=== PATIENT | female | born 1950 | race Caucasian/White ===

== ENCOUNTER → 2018-01-18 | Outpatient (CLI) | payer MEDICARE ==
[2013-11-24 09:47] VITALS: BP 132/85
[~2018-01-18] MED LIST: CELEBREX100 MG; CELEBREX200 MG PO; CRESTOR; CRESTOR 10MG10 MG PO; GABAPENTIN300 MG PO; LEVOTHYROXIN0.075 MG PO; LEVOTHYROXINE; METFORMIN500 MG PO; NORCO 325 MG-101 TAB; ONDANSETRON HYDR4 M1 PO; SERTRALINE100 MG PO; VIBRAMYCIN100 MG PO
== END ==
LOC: RAD 15:22
DX: M79.661 Pain in right lower leg (principal)

== ENCOUNTER → 2018-04-11 | Outpatient (CLI) | payer MEDICARE ==
[2013-11-24 09:47] VITALS: BP 132/85
== END ==
LOC: RAD 12:00
DX: M19.071 Primary osteoarthritis, right ankle and foot (principal); M85.471 Solitary bone cyst, right ankle and foot; M89.8X7 Other specified disorders of bone, ankle and foot

== ENCOUNTER 2018-10-13 13:30 | Outpatient (RCR) | payer MEDICARE ==
[2013-11-24 09:47] VITALS: BP 132/85
== END 2018-10-13 14:00 ==
LOC: PT 13:30
DX: S42.91XA Fracture of right shoulder girdle, part unspecified, initial encounter for closed fracture (principal)

== ENCOUNTER → 2019-03-21 | Outpatient (CLI) | payer MEDICARE ==
[2013-11-24 09:47] VITALS: BP 132/85
== END ==
LOC: RAD 10:52 → MAMMO 11:30 → RAD 11:30
DX: Z13.820 Encounter for screening for osteoporosis (principal); M85.851 Other specified disorders of bone density and structure, right thigh

== ENCOUNTER → 2019-03-21 | Outpatient (CLI) | payer MEDICARE ==
[2013-11-24 09:47] VITALS: BP 132/85
== END ==
LOC: MAMMO 10:45
DX: Z12.31 Encounter for screening mammogram for malignant neoplasm of breast (principal)

== ENCOUNTER 2019-04-13 11:00 | Outpatient (RCR) | payer MEDICARE ==
[2013-11-24 09:47] VITALS: BP 132/85
== END 2019-05-09 | disposition still patient (30) ==
LOC: PT
DX: M12.811 Other specific arthropathies, not elsewhere classified, right shoulder (principal)

== ENCOUNTER 2019-09-21 23:40 | Emergency (ER) | payer MEDICARE ==
[~2019-09-21 23:40] MED LIST changes: -LEVOTHYROXINE; +SYNTHROID0.075 MG PO
[2019-09-22 00:38] LABS: ALBUMIN 3.7 g/dL (3.4-4.8); POTASSIUM 3.5 mmol/L (3.5-5.1); SODIUM 143 mmol/L (136-145)
[2019-09-22 00:40] LABS: CALCIUM 9.3 mg/dL (8.3-10.5); EOS # 0.1 (0.04-0.40); EOS % 1.4 % (1.0-5.0); HEMATOCRIT 43.6 % (37.0-47.0); HEMOGLOBIN 13.9 g/dL (12.5-16.0); LYMPH# 1.8 (1.50-4.00); MEAN CELL VOLUME 95 fl (78-100); MEAN CORPUSCULAR HEMOGLOBIN 30 pg (27-31); MEAN CORPUSCULAR HGB CONC 32 g/dL (33-37); MEAN PLATELET VOLUME 9.3 fl (7.4-10.4); MONO # 0.3 (0.20-0.80); NEU # 6.2 (1.40-6.50); PLATELET COUNT 289 K/mm3 (130-400); RED BLOOD COUNT 4.59 M/mm3 (4.10-5.30); RED CELL DISTRIBUTION WIDTH 13.2 % (11.5-14.5); WHITE BLOOD COUNT 8.4 K/mm3 (4.8-10.8)
[2019-09-22 00:41] LABS: GLUCOSE 122 mg/dL (65-105); TOTAL PROTEIN 6.3 g/dL (6.2-8.1)
[2019-09-22 00:42] LABS: CARBON DIOXIDE 27 mmol/L (23-31)
[2019-09-22 00:43] LABS: TOTAL BILIRUBIN 0.3 mg/dL (0.2-1.2)
[2019-09-22 00:46] LABS: AST-SGOT 21 U/L (5-34)
[2019-09-22 00:47] LABS: ALT/SGPT 10 U/L (0-55)
[2019-09-22 00:48] LABS: ALCOHOL IN-HOUSE < 10 mg/dL (<10)
[2019-09-22 00:55] LABS: TROPONIN-I < 0.03 ng/mL (<0.030)
[2019-09-22 01:53] LABS: D-DIMER 10.67 mg/L FEU (0.15-0.50)
[2019-09-22 02:41] LABS: URINE APPEARANCE CLEAR; URINE COLOR YELLOW
[2019-09-22 02:42] LABS: URINE BILIRUBIN NEGATIVE (NEGATIVE); URINE BLOOD NEGATIVE (NEGATIVE); URINE GLUCOSE NEGATIVE (NEGATIVE); URINE KETONE NEGATIVE (NEGATIVE); URINE LEUKOCYTE ESTERASE 1+ (NEGATIVE); URINE NITRATE NEGATIVE (NEGATIVE); URINE PROTEIN(semi-quant) TRACE mg/dL (NEGATIVE); URINE UROBILINOGEN NORMAL (NORMAL)
[2019-09-22] MEDS ORDERED: ACETAMINOPHEN-H1 TA1 PO (03:12)
[2019-09-22] MEDS ORDERED: PLAQUENIL 200M200 MG PO (03:12)
[2019-09-22] MEDS ORDERED: LISINOPRIL10 MG PO (03:13)
[2019-09-22] MEDS ORDERED: GLUCOPHAGE PO (03:13)
[2019-09-22] MEDS ORDERED: ROSUVASTATIN CA10 MG PO (03:13)
[2019-09-22] MEDS ORDERED: DULOXETINE60 MG PO (03:14)
[2019-09-22] MEDS ORDERED: HCTZ 25MG25 MG PO (03:14)
[2019-09-22] MEDS ORDERED: NEURONTIN300 MG/CAP PO (03:15)
[2019-09-22 03:50] VITALS: BP 152/78
== END 2019-09-22 03:50 | disposition short-term general hospital (02) ==
LOC: ED 23:40
PROVIDERS: Nurse Practitioner Family
DX: I95.1 Orthostatic hypotension (principal); E86.0 Dehydration; E86.1 Hypovolemia; I12.9 Hypertensive chronic kidney disease with stage 1 through stage 4 chronic kidney disease, or unspecified chronic kidney disease; E11.22 Type 2 diabetes mellitus with diabetic chronic kidney disease; N18.9 Chronic kidney disease, unspecified; E78.5 Hyperlipidemia, unspecified; Z90.89 Acquired absence of other organs; Z90.710 Acquired absence of both cervix and uterus; Z79.84 Long term (current) use of oral hypoglycemic drugs
CPT/HCPCS: J7120; Q9967

== ENCOUNTER → 2020-06-20 | Outpatient (CLI) | payer MEDICARE ==
[~2020-06-20] MED LIST changes: +ACETAMINOPHEN-H1 TA1 PO; +DULOXETINE60 MG PO; +GLUCOPHAGE PO; +HCTZ 25MG25 MG PO; +LISINOPRIL10 MG PO; +NEURONTIN300 MG/CAP PO; +PLAQUENIL 200M200 MG PO; +ROSUVASTATIN CA10 MG PO
== END ==
LOC: MAMMO 11:35
DX: D17.1 Benign lipomatous neoplasm of skin and subcutaneous tissue of trunk (principal)

== ENCOUNTER → 2021-07-07 | Day surgery (SDC) | payer MEDICARE | END | disposition home or self-care (01) | LOC: MSO 07:24 | DX: D50.9 Iron deficiency anemia, unspecified (principal); E11.9 Type 2 diabetes mellitus without complications; Z79.84 Long term (current) use of oral hypoglycemic drugs; M79.7 Fibromyalgia; E03.9 Hypothyroidism, unspecified; E78.2 Mixed hyperlipidemia; F32.A Depression, unspecified; F41.9 Anxiety disorder, unspecified; G47.33 Obstructive sleep apnea (adult) (pediatric); M06.9 Rheumatoid arthritis, unspecified; Z91.19 Patient's noncompliance with other medical treatment and regimen; Z79.890 Hormone replacement therapy; Z98.84 Bariatric surgery status; Z79.899 Other long term (current) drug therapy; Z79.891 Long term (current) use of opiate analgesic | CPT/HCPCS: 00813; J2704; J7120 ==

== ENCOUNTER → 2023-10-27 | Outpatient (CLI) | payer MEDICARE ==
[~2023-10-27] MED LIST changes: +METHOTREXATE2.5 MG PO
== END ==
LOC: MAMMO 14:09
DX: Z12.31 Encounter for screening mammogram for malignant neoplasm of breast (principal)